=== PATIENT | female | born 1935 | race Caucasian/White ===

== ENCOUNTER 2016-12-30 15:26 | Emergency (ER) | payer MEDICAID, MEDICARE ==
[2016-12-30] MEDS ORDERED: Sodium Chloride 0.9% 1,000 ML IV ONE (15:36)
[2016-12-30 15:53] LABS: BASO # 0.1 K/uL (0.0-0.2); BASO % 0.7 % (0.0-2.0); EOS # 0.1 K/uL (0.0-0.7); EOS % 0.6 % (0.0-4.0); HEMATOCRIT 32.7 % (34.0-47.0); LYMPH % 25.9 % (20.0-40.0); MEAN CELL VOLUME 78.4 fL (81.0-99.0); MEAN CORPUSCULAR HEMOGLOBIN 24.7 pg (27.0-31.0); MEAN CORPUSCULAR HGB CONC 31.5 g/dL (33.0-37.0); MEAN PLATELET VOLUME 9.5 fL (7.2-11.7); MONO # 0.3 K/uL (0.0-0.8); MONO % 2.8 % (0.0-10.0); WHITE BLOOD COUNT 11.6 K/uL (4.8-10.8)
[2016-12-30] MEDS ORDERED: Sodium Chloride 0.9% 1,000 ML ONE (15:57)
[2016-12-30 16:06] LABS: POTASSIUM 4.1 mmol/L (3.6-5.2)
[2016-12-30 16:08] LABS: ALB/GLOB RATIO 1.2 (1.0-2.1); BILIRUBIN,TOTAL 0.3 mg/dL (0.2-1.3); TOTAL PROTEIN 6.6 g/dL (6.3-8.3)
[2016-12-30 16:09] LABS: CALCIUM 9.1 mg/dl (8.6-10.4)
[2016-12-30 16:21] LABS: RBC URINE 1 /hpf (0-3); URINE BILIRUBIN NEGATIVE (NEGATIVE); URINE BLOOD NEGATIVE (NEGATIVE); URINE COLOR Straw (YELLOW); URINE GLUCOSE (UA) 3+ mg/dL (Normal); URINE KETONE TRACE mg/dL (NEGATIVE); URINE LEUKOCYTE ESTERASE NEG Leu/uL (Negative); URINE PROTEIN NEGATIVE (NEGATIVE); URINE UROBILINOGEN NORMAL mg/dL (0.2-1.0)
--- NOTE | 2016-12-30 16:46 | C.PDOC ---
History Of Present Illness The patient, an 81 y/o female whose PMHx includes DE, HTN, Hypercholesterolemia , and Diabetes, is brought to the ED by family for evaluation of altered mental status noted around 1430 today. Patient appeared to be at baseline when she woke up this morning. At around 1400, patient took a nap and continued to appear "sleepy" after family tried to wake her. Patient reports slight dizziness. She denies fever, chills, chest pain, headache, vision change, trouble with breathing, and abdominal pain. According to her daughter she has a chronic cough but has not been short of breath and has no fever. Time Seen by Provider: 12/30/16 15:30 Chief Complaint (Nursing): Altered Mental Status History Per: Patient, Family History/Exam Limitations: None Onset/Duration Of Symptoms: Hrs Onset Of Symptoms: Cannot Confirm Onset Current Symptoms Are (Timing): Still Present Exacerbating Factor(s): Unknown Additional History Per: Patient, Family Associated Symptoms: Other (+sleepiness ). denies: Fever, Chills, Chest Pain, Headache Past Medical History Reviewed: Historical Data, Nursing Documentation, Vital Signs Vital Signs: Last Vital Signs Temp Pulse 59 L 12/30/16 16:50 Resp 17 12/30/16 16:50 BP 151/49 H 12/30/16 16:50 Pulse Ox 98 12/30/16 17:52 - Medical History PMH: HTN, Hypercholesterolemia Denies: Chronic Kidney Disease Surgical History: No Surg Hx Family History: States: Unknown Family Hx - Social History Hx Tobacco Use: No Hx Alcohol Use: No Hx Substance Use: No - Immunization History Hx Tetanus Toxoid Vaccination: No Hx Influenza Vaccination: No Hx Pneumococcal Vaccination: No Review Of Systems Except As Marked, All Systems Reviewed And Found Negative. Constitutional: Negative for: Fever, Chills Eyes: Negative for: Vision Change Cardiovascular: Negative for: Chest Pain Respiratory: Negative for: Cough, Shortness of Breath Gastrointestinal: Negative for: Abdominal Pain Neurological: Positive for: Altered Mental Status, Dizziness (slight ). Negative for: Headache Physical Exam - Physical Exam Appears: Non-toxic, No Acute Distress, Other (+groggy) Skin: Normal Color, Warm, Dry Head: Atraumatic, Normacephalic Eye(s): bilateral: Normal Inspection, PERRL, EOMI Oral Mucosa: Moist Neck: Normal ROM, Supple Chest: Symmetrical, No Deformity, No Tenderness Cardiovascular: Rhythm Regular, No Murmur Respiratory: Normal Breath Sounds, No Rales, No Rhonchi, No Wheezing Gastrointestinal/Abdominal: Soft, No Tenderness, No Guarding, No Rebound Back: Normal Inspection, No Vertebral Tenderness, No Paraspinal Tenderness Extremity: Normal ROM, Capillary Refill (less than 2 seconds) Pulses: Left Dorsalis Pedis: Normal, Right Dorsalis Pedis: Normal Neurological/Psych: Oriented x3, Normal Speech, Normal Cognition, Normal Motor Gait: Steady ED Course And Treatment - Laboratory Results Result Diagrams: 12/30/16 15:49 12/30/16 15:49 Lab Interpretation: Abnormal (Slightly elevated WBC with normal differential. Blood sugar 217, Renal insufficiency with BUN 38 Cr 1.5) ECG: Interpreted By Me ECG Rhythm: Sinus Rhythm, 1st Degree HB ECG Interpretation: No Acute Changes O2 Sat by Pulse Oximetry: 98 (on RA) Pulse Ox Interpretation: Normal - Radiology CXR: Viewed By Me, Read By Radiologist CXR Interpretation: Yes: Infiltrates (Left lower lobe), Other (mild vascular congestion) - Other Rad CXR X-Ray: Interpreted by Me, Viewed By Me, Read By Radiologist Interpretation: Accession No. : [id number]. Patient Name / ID : NIVIA DAVIS / [id number]. Exam Date : 12/30/2016 16:06:21 ( Approved ). Study Comment : Sex / Age : F / 81Y. Creator : Michael Friend. Dictator : Michael Friend. Preparation Plant Supervisor : Freezer Worker : Michael Friend. Approver2 : Report Date : 12/30/2016 17:49:26. My Comment : . PROCEDURE: CHEST RADIOGRAPH, 1 VIEW. HISTORY: AMS. COMPARISON: Comparison is made to the previous study dated 02/11/2015. FINDINGS: LUNGS: Moderate pulmonary vascular congestion is noted. Possible small infiltrate at the left lower lobe. Otherwise no significant interval change. PLEURA: No pneumothorax or pleural fluid seen. CARDIOVASCULAR: Normal. OSSEOUS STRUCTURES: No significant abnormalities. VISUALIZED UPPER ABDOMEN: Normal. OTHER FINDINGS: None. IMPRESSION: New perihilar opacities may represent pulmonary vascular congestion. Small infiltrate at the left lower lobe. - CT Scan/US CT Scan Head Other Rad Studies (CT/US): Read By Radiologist CT/US Interpretation: Patient Name / ID : NIVIA DAVIS / [id number]. Exam Date : 12/30/2016 17:59:17 ( Approved ). Study Comment : Sex / Age : F / 81Y. Creator : Yonathan Messina MD. Dictator : Yonathan Messina MD. Preparation Plant Supervisor : Freezer Worker : Yonathan Messina MD. Approver2 : Report Date : 12/30 18:14:19. My Comment : . PROCEDURE: CT HEAD WITHOUT CONTRAST. HISTORY: altered mental status. COMPARISON: None available. TECHNIQUE: Axial computed tomography images were obtained through the head/brain without intravenous contrast. Radiation dose: Total exam DLP = 787.76 mGy-cm. FINDINGS: HEMORRHAGE: No intracranial hemorrhage. BRAIN: No mass effect or edema. Moderate diffuse age-appropriate cerebral atrophy. Mild periventricular white matter lucency consistent with age related microvascular ischemic change. No evidence of acute infarct. VENTRICLES: Unremarkable. No hydrocephalus. CALVARIUM: Unremarkable. PARANASAL SINUSES: Unremarkable as visualized. No significant inflammatory changes. MASTOID AIR CELLS: No mastoid effusion. Sclerosis of inferior right mastoid may reflect old mastoiditis. OTHER FINDINGS: None. IMPRESSION: No intracranial mass, hemorrhage or evidence of acute infarct. Age-appropriate atrophy and chronic microvascular ischemic change. Progress Note: labs, CXR, and EKG were ordered and reviewed. Patient received IV Fluids. Reevaluation Time: 18:25 Reassessment Condition: Improved (Patient awake and alert and remains comfortable.) Disposition Counseled Patient/Family Regarding: Studies Performed - Disposition Referrals: [place] Smooth, MD [Non-Staff] - Disposition: HOME/ ROUTINE Disposition Time: 18:28 Condition: STABLE Prescriptions: Cefuroxime Axetil [Cefuroxime] 500 mg PO BID #20 tablet Instructions: Bacterial Pneumonia (ED) Print Language: DUTCH - Clinical Impression Clinical Impression: Pneumonia - Scribe Statement The provider has reviewed the documentation as recorded by the Scribe (Simran Hinton) Provider Attestation: All medical record entries made by the Scribe were at my direction and personally dictated by me. I have reviewed the chart and agree that the record accurately reflects my personal performance of the history, physical exam, medical decision making, and the department course for this patient. I have also personally directed, reviewed, and agree with the discharge instructions and disposition.
--- NOTE | 2016-12-30 17:51 | RAD ---
PROCEDURE: CHEST RADIOGRAPH, 1 VIEW HISTORY: AMS COMPARISON: Comparison is made to the previous study dated 02/11/2015 FINDINGS: LUNGS: Moderate pulmonary vascular congestion is noted. Possible small infiltrate at the left lower lobe. Otherwise no significant interval change. PLEURA: No pneumothorax or pleural fluid seen. CARDIOVASCULAR: Normal. OSSEOUS STRUCTURES: No significant abnormalities. VISUALIZED UPPER ABDOMEN: Normal. OTHER FINDINGS: None. IMPRESSION: New perihilar opacities may represent pulmonary vascular congestion. Small infiltrate at the left lower lobe.
--- NOTE | 2016-12-30 18:15 | CT ---
PROCEDURE: CT HEAD WITHOUT CONTRAST. HISTORY: altered mental status COMPARISON: None available. TECHNIQUE: Axial computed tomography images were obtained through the head/brain without intravenous contrast. Radiation dose: Total exam DLP = 787.76 mGy-cm. FINDINGS: HEMORRHAGE: No intracranial hemorrhage. BRAIN: No mass effect or edema. Moderate diffuse age-appropriate cerebral atrophy. Mild periventricular white matter lucency consistent with age related microvascular ischemic change. No evidence of acute infarct. VENTRICLES: Unremarkable. No hydrocephalus. CALVARIUM: Unremarkable. PARANASAL SINUSES: Unremarkable as visualized. No significant inflammatory changes. MASTOID AIR CELLS: No mastoid effusion. Sclerosis of inferior right mastoid may reflect old mastoiditis. OTHER FINDINGS: None. IMPRESSION: No intracranial mass, hemorrhage or evidence of acute infarct. Age-appropriate atrophy and chronic microvascular ischemic change.
[2016-12-30 19:05] VITALS: BP 128/70; PULSE 62; RESP 18; TEMP 97.8; O2SAT 97
--- NOTE | 2016-12-31 11:45 | CARD ---
APPROVED REPORT EKG Measurement Heart [id number] MD [id number] <Conclusion> Sinus rhythm with 1st degree AV block Otherwise normal ECG
== END 2016-12-30 19:05 | disposition home or self-care (01) ==
LOC: C.ER 15:26
DX: J18.9 Pneumonia, unspecified organism (principal)
CPT/HCPCS: 70450; 71010; 80053; 81001; 82948; 85025; 87040; 87086; 93005; 96360; 99285; J7040